=== PATIENT | male | born 1965 | race Caucasian/White ===

== ENCOUNTER 2023-03-24 06:41 | Emergency (ER) | payer MEDICAID ==
[~2023-03-24] VITALS: Ht 180.3 cm; Wt 125.0 kg
[2023-03-24 08:26] LABS: CLARITY,URINE SLIGHTLY CLOUDY (Clear); COLOR,URINE YELLOW (Yellow); GLUCOSE, URINE NEGATIVE (Neg); KETONES,URINE TRACE mg/dl (Neg); LEUKOCYTE ESTERASE ,URINE NEGATIVE (Neg); NITRITES, URINE NEGATIVE (Neg); OCCULT BLOOD,URINE NEGATIVE (Neg); PROTEIN,URINE NEGATIVE (Neg); UROBILINOGEN,URINE 0.2 E.U/dL (0.2-1.0)
[2023-03-24 08:28] LABS: UA COLLECTION TYPE CLN CATCH MIDSTREAM
[2023-03-24 08:29] LABS: MUCUS STRANDS MANY /LPF (Neg); SQUAMOUS EPITHELIAL CELL,UR FEW /LPF (FEW)
[2023-03-24 08:31] LABS: BACTERIA,URINE FEW /HPF (Neg); RBC,URINE 0-2 /HPF (0-2); WBC,URINE 0-4 /HPF (0-4)
[2023-03-24 09:08] LABS: BASOPHILS % (AUTO) 0.2 % (0-1); EOSINOPHILS # (AUTO) 0.1 X10'3 (0-0.9); EOSINOPHILS % (AUTO) 0.9 % (0-6); HEMATOCRIT 49.9 % (42.0-52.0); HEMOGLOBIN 17.3 g/dl (14.0-17.9); LYMPHOCYTES # (AUTO) 2.2 X10'3 (1.1-4.8); MEAN CORPUSCULAR HEMOGLOBIN 30.5 PG (27.0-31.0); MEAN CORPUSCULAR HGB CONC 34.7 g/dL (33.0-36.5); MEAN CORPUSCULAR VOLUME 87.9 FL (78-98); MEAN PLATELET VOLUME 8.6 FL (7.4-10.4); MONOCYTES # (AUTO) 0.9 X10'3 (0-0.9); MONOCYTES % (AUTO) 9.8 % (2-12); NEUTROPHILS # (AUTO) 5.6 X10'3 (1.8-7.7); NEUTROPHILS % (AUTO) 64.1 % (42-75); PLATELET COUNT 187 X10'3 (140-440); RED BLOOD COUNT 5.68 X10'6 (4.70-6.10); RED CELL DISTRIBUTION WIDTH 13.5 % (11.5-14.5); WHITE BLOOD COUNT 8.7 X10'3 (4.5-11.0)
[2023-03-24 09:33] LABS: ALANINE AMINOTRANSFERASE 54 U/L (12-78); ALBUMIN 4.1 G/DL (3.4-5.0); ALBUMIN/GLOBULIN RATIO 1.1 (1.1-1.5); ALKALINE PHOSPHATASE 84 IU/L (46-116); ANION GAP 9 (8-16); ASPARTATE AMINO TRANSFERASE 25 U/L (10-37); BILIRUBIN,TOTAL 0.7 MG/DL (0.1-1.0); BLOOD UREA NITROGEN 10 MG/DL (7-18); CALCIUM 9.1 MG/DL (8.5-10.1); CHLORIDE 103 MMOL/L (99-107); GLUCOSE 157 MG/DL (70-104); LIPASE 91 U/L (73-393); SODIUM 138 MMOL/L (135-145); TOTAL PROTEIN 7.9 G/DL (6.4-8.2); eGFR 77 ML/MIN
[2023-03-24] MEDS ORDERED: dicyclomine 10 MG capsule PO ONE (10:00)
[2023-03-24] MEDS ORDERED: amox tr/potassium clavulanate 875/125mg TAB PO ONE (10:00)
[2023-03-24] MEDS ORDERED: AMOX-580 PO (10:02)
[2023-03-24] MEDS ORDERED: DICY10CA88 PO (10:02)
[2023-03-24 10:37] VITALS: BP 140/103
== END 2023-03-24 10:40 | disposition home or self-care (01) ==
LOC: ER 06:42
DX: K57.92 Diverticulitis of intestine, part unspecified, without perforation or abscess without bleeding (principal); R51.9 Headache, unspecified; R19.7 Diarrhea, unspecified; R50.9 Fever, unspecified; E78.00 Pure hypercholesterolemia, unspecified; I10 Essential (primary) hypertension; Z90.49 Acquired absence of other specified parts of digestive tract; Z98.890 Other specified postprocedural states; Z79.899 Other long term (current) drug therapy
CPT/HCPCS: 36415; 80053; 81001; 83690; 85025; 99283